=== PATIENT | female | born 1975 | race Caucasian/White ===

== ENCOUNTER 2022-02-15 10:08 | Outpatient (CLI) | payer BC, SELFPAY ==
--- NOTE | 2022-02-15 10:15 | CRLHL7_ITS ---
For Patients: As a result of the Century Cures Act, medical imaging exams and procedure reports are released immediately into your electronic medical record. You may view this report before your referring provider. If you have questions, please contact your health care provider. BILATERAL SCREENING MAMMOGRAM WITH COMPUTER-AIDED DETECTION AND TOMOSYNTHESIS TECHNIQUE: CC and MLO views were obtained. These mammographic images have been obtained using full-field digital technique. These mammographic images were interpreted with the benefit of computer-aided detection. Breast Tomosynthesis was used in this interpretation. COMPARISON FILM: 10/10/20, 04/07/17. FINDINGS: The breasts are heterogeneously dense, which may obscure small masses IMPRESSION: There is no radiographic evidence for malignancy. ASSESSMENT: BI-RADS Category 1: Negative RECOMMENDATION: Routine screening mammogram in 1 year. A lay language report of this examination will be provided to the patient. Drew Aparicio M.D. Diagnostic Radiologist [email or web address] ROYAL/Dictated by: Drew Aparicio MD @ 02/15/2022 12:48:00 PM (Electronically Signed)
== END 2022-02-15 10:09 | disposition home or self-care (01) ==
LOC: MAMMO 10:10
PROVIDERS: PCP Family Medicine; Visit Provider Family Medicine
DX: Z12.31 Encounter for screening mammogram for malignant neoplasm of breast (principal); R92.2 Inconclusive mammogram
CPT/HCPCS: 77063; 77067

== ENCOUNTER 2023-07-15 13:51 | Outpatient (CLI) | payer BC, SELFPAY ==
--- NOTE | 2023-07-15 14:00 | CRLHL7_ITS ---
For Patients: As a result of the Century Cures Act, medical imaging exams and procedure reports are released immediately into your electronic medical record. You may view this report before your referring provider. If you have questions, please contact your health care provider. BILATERAL SCREENING MAMMOGRAM WITH COMPUTER-AIDED DETECTION AND TOMOSYNTHESIS TECHNIQUE: CC and MLO views were obtained. These mammographic images have been obtained using full-field digital technique. These mammographic images were interpreted with the benefit of computer-aided detection. Breast Tomosynthesis was used in this interpretation. COMPARISON FILM: 02/15/22, 10/10/20, 04/07/17. FINDINGS: The breasts are heterogeneously dense, which may obscure small masses IMPRESSION: There is no radiographic evidence for malignancy. ASSESSMENT: BI-RADS Category 1: Negative RECOMMENDATION: Routine screening mammogram in 1 year. A lay language report of this examination will be provided to the patient. Drew Aparicio M.D. Diagnostic Radiologist [email or web address] MILE/alison Transcribed: 5:03 p.[email or web address] rosas/Dictated by: Drew Aparicio MD @ 07/17/2023 12:47:00 PM (Electronically Signed)
== END 2023-07-15 13:52 | disposition home or self-care (01) ==
PROVIDERS: PCP Family Medicine; Visit Provider Family Medicine
DX: Z12.31 Encounter for screening mammogram for malignant neoplasm of breast (principal); R92.2 Inconclusive mammogram
CPT/HCPCS: 77063; 77067

== ENCOUNTER 2024-07-14 10:29 | Outpatient (CLI) | payer BC, SELFPAY | END 2024-07-14 10:30 | disposition home or self-care (01) | PROVIDERS: PCP Family Medicine; Visit Provider Family Medicine | DX: R53.83 Other fatigue (principal); Z13.6 Encounter for screening for cardiovascular disorders; Z13.1 Encounter for screening for diabetes mellitus; Z13.220 Encounter for screening for lipoid disorders | CPT/HCPCS: 80053; 80061; 82607; 84439; 84443 ==

== ENCOUNTER 2024-07-22 08:47 | Outpatient (CLI) | payer BC, SELFPAY ==
--- NOTE | 2024-07-22 10:19 | W.ANESCHARGE ---
Anesthesia Charges Start Date/Time Anesthesia Start Date: 07/22/24 Anesthesia Start Time: 09:39 Stop Date/Time Anesthesia Stop Date: 07/22/24 Anesthesia Stop Time: 10:17 Coding CPT Codes CPT Codes: NARDA LWR INTST NDAL NOS - 29150 ([id number]) P1 - NORMAL HEALTHY PATIENT, QK - MANAGER PARTY 2-4 CNCRNT ANES PROC, QX - SENIOR TECHNICAL WRITER SVC W/ MED DIRECTION
[2024-07-24 11:42] LABS: Carcinoembryonic Antigen 1.1 ng/mL (<=3.8)
== END 2024-07-22 08:48 | disposition home or self-care (01) ==
LOC: OP CLINIC 08:47
PROVIDERS: PCP Family Medicine; Visit Provider Surgery
DX: Z12.11 Encounter for screening for malignant neoplasm of colon (principal); D12.3 Benign neoplasm of transverse colon; D49.0 Neoplasm of unspecified behavior of digestive system; Z83.719 Family history of colon polyps, unspecified
CPT/HCPCS: 00811; 36415; 45380; 45381; 45385; 82378; J2704

== ENCOUNTER 2024-07-22 11:07 | Outpatient (CLI) | payer BC, SELFPAY | END 2024-07-22 11:08 | disposition home or self-care (01) | LOC: CT 11:08 | PROVIDERS: PCP Family Medicine; Visit Provider Surgery | DX: K63.89 Other specified diseases of intestine (principal); K76.9 Liver disease, unspecified; R91.8 Other nonspecific abnormal finding of lung field | CPT/HCPCS: 71260; 74177; Q9967 ==

== ENCOUNTER 2024-08-02 09:58 | Inpatient (IN) | payer BC, SELFPAY ==
[2024-08-02] VITALS (23 sets, daily range): BP systolic 106–133; BP diastolic 61–88; PULSE 78–98; RESP 14–19; TEMP 36.3–37.2; O2SAT 92–97; BMI 20.6
[2024-08-02 10:28] LABS: Ur HCG Qualitative* Negative (Negative)
[2024-08-02] MEDS: SODIUM CHLORIDE 0.9 % (FLUSH) 10 ML SYRINGE IVF (10:30)
[2024-08-02] MEDS: LACTATED RINGERS 1000 ML 1,000 ML 100 ML IV ×2 (10:30→14:07)
--- NOTE | 2024-08-02 11:49 | PM.GSPRC ---
Operative Note Date of procedure: 08/02/24 Pre-op diagnosis: 1. Endoscopically unresectable splenic flexure tubulovillous adenoma. Post-op diagnosis: Same Type of Procedure: 1. Laparoscopic left hemicolectomy. 2. I SPY administration. Indications: 49-year-old female underwent first colonoscopy and was found to have a large polyp / mass at the splenic flexure. Biopsies of this polyp were done and returned as tubulovillous adenoma. A tattoo was placed proximally and distally to this polyp. Since the polyp was occupying about 50% of the colon circumference and had central indentation, laparoscopic left hemicolectomy was recommended. CT chest, abdomen and pelvis were obtained and did not show any concerns for metastatic disease. Patient's CEA was normal. The procedure was discussed in detail. The risks associated procedure including infection, bleeding, injury to intra-abdominal organs, anastomotic leak, and the need for additional procedures were all discussed with the patient, she agreed to proceed. Procedure Description: After discussing the risks and benefits of the procedure, the patient signed informed consent.? The operative site was marked and the patient was brought to the operating room and placed on the operating table in supine position.? Patient was intubated by anesthesia. Patient was then placed in the modified lithotomy position with all pressure points padded. A Hickey catheter was inserted under sterile conditions. The surgical site was then prepped and draped in the usual sterile fashion.? A time-out was then performed. The abdomen was entered in the left upper quadrant using a Visiport technique. The abdominal wall layers were visualized and the abdomen was entered. The abdomen was insufflated with carbon dioxide. Small liver laceration was noted from the entrance site. This was not bleeding. We then placed additional laparoscopic ports under direct visualization. A 5 mm port was placed below the umbilicus, another one slightly to the right of the umbilicus and 12 mm port was placed suprapubically. The patient was positioned with the left side up. The proximal and distal tattoo was identified in the distal transverse colon/splenic flexure. I then proceeded with mobilizing the descending colon and splenic flexure. Omental adhesions were noted at the splenic flexure and those were lysed with the Harmonic scalpel. The descending colon was rotated medially and the white line of Toldt was divided with Harmonic scalpel. This dissection was carried superiorly toward the splenic flexure. Omentum was mobilized off the splenic flexure colon with Harmonic scalpel. Gastrocolic ligament was then divided with Harmonic scalpel as well. The transverse colon was retracted caudad and transverse colon mesentery was mobilized off the retroperitoneum bluntly and with Harmonic scalpel. Pancreas and duodenum were visualized and care was taken not to injure those. During this dissection the colonic wall at the proximal tattoo was injured with Harmonic scalpel. This was clipped with 5 mm clips to avoid contamination. When the splenic flexure was mobile, we turned our attention to the descending colon and sigmoid colon. The lateral attachments of the sigmoid colon to the abdominal wall were mobilized with Harmonic scalpel and Metzenbaum scissors. Left ureter was visualized and care was taken not to injure it. The sigmoid colon was extremely redundant. When the colon was mobile, we then proceeded with dividing the vasculature. The left colic artery and vein was identified at its takeoff. This was circumferentially dissected and divided with vascular load of STACIE stapler. The sigmoidal arteries were preserved in order to preserve the colonic length and perfusion and achieve tension-free transverse to sigmoid colon anastomosis. Colonic mesentery supplying the splenic flexure and the distal transverse colon was then further divided. The left branch of the middle colic artery was identified and mobilized circumferentially with Brielle dissector. This was controlled with clips proximally and distally and divided between the clips. The transverse colon and splenic flexure as well as descending colon were very mobile. We then proceeded with I SPY(ICG injection) detection of colon perfusion. A clear demarcation of the transverse colon and sigmoid colon perfusion was identified and elected as the area of colonic division. These areas were grasped with laparoscopic instruments. We then proceeded with extracorporeal portion of the procedure. The laparoscopic instruments were removed from the abdomen. The abdomen was deflated. A periumbilical vertical skin incision was made with a scalpel. Dermis was divided with cautery. The anterior fascia was divided with cautery. The abdomen was entered and fascial incision was extended superiorly and inferiorly. Small Sam retractor was then placed in the wound. The grasped segments of colon were eviscerated and grabbed with Ruy clamps. The elected areas of colon division were identified and mid transverse colon and proximal sigmoid colon were divided with blue load of STACIE stapler. The left colon was then marked with a single stitch proximally and put on the back table. At the end of the case the specimen was opened on the back table and a large polyp was identified. There was no clear mass seen. Bleeding from the staple line was controlled with 3-0 silk sutures. The sigmoid colon and transverse colon were very mobile and we then proceeded with side to side functional end to end anastomosis. The colonic mesentery was not twisted. A stay stitch was placed at the colonic staple line. The colotomy was then made in both limbs of the colon and [id number] anastomosis was created with a blue load of 100 STACIE stapler. The anastomosis was examined from the inside and no bleeding was seen initially. We then proceeded with closure of common enterotomy. This was done with interrupted Lembert 3-0 silk sutures. During this closure bleeding was noticed inside the staple line and that was controlled with silk and Vicryl suture stick ties. No further bleeding was seen intraluminally. The colon was well perfused. We then finished our closure of common enterotomy with silk sutures. A crotch stitch was placed with silk suture. The anastomosis was patent to palpation and was well perfused. No tension was seen on the anastomosis. The mesenteric defect was large and we elected not to close it. The anastomosis was then pushed into the abdomen. All previously placed towels and dirty instruments were removed. The Ewelina retractor was removed. The surgeon and assistants changed gloves and cautery as well as suction tip. We then proceeded with midline closure. The fascia of the midline incision was then closed with 2 running PDS sutures. The abdomen was insufflated again and anastomosis was examined. The anastomosis appeared to lay easily in the left upper quadrant. Omentum was placed over the anastomosis. No bleeding was identified. The 12 mm port suprapubic port was removed and the fascia of this incision was closed with interrupted 0-0 Vicryl sutures. The liver was examined again and no bleeding was identified. All laparoscopic instruments were removed after allowing carbon dioxide to escape from the abdomen. We then proceeded with incisional closure. The midline incision was reapproximated with interrupted Vicryl sutures. The skin of all incisions was then closed with 4-0 Monocryl stitch. Steri-Strips were placed over the incisions. Midline incision was covered with gauze and tape. All counts were correct at the end of the case. The patient was then woken and transported to the recovery area in stable condition. ? The patient tolerated the procedure well. Findings: Tattoo was identified in the distal transverse/splenic flexure. The specimen was opened on the back table and a large polyp was identified in the specimen. Anesthesia: GETA Surgeon: Bobby Ricci MD Co-Surgeon: Daly Cannon MD Estimated blood loss (mL): 20 Additional Specimen Information: 1. Left colon Condition: stable Disposition: PACU Colon Resection Operation Performed with Curative Intent: Yes Tumor location: Splenic flexure Extent of colon and vascular resection: Splenic flexure resection-middle and ascending left colic
[2024-08-02] MEDS: ERTAPENEM 1 GM inj IVPB (12:10)
--- NOTE | 2024-08-02 12:31 | P.NB_ITS ---
Nerve Block Nerve Block Time Seen by Provider: 12:06 Date Seen: 08/02/24 Type of block requested by surgeon for post-operative analgesia: TAP Side: bilateral Time out performed: Yes Verification of patient name: Yes Verification of date of : Yes Site marking: site marked Name of person performing procedure: Sixto Continuous monitoring Was continuous monitoring of O2 sat, B/P, cardiac exercise specialist, recorded every 15 minutes?: Yes Procedure Checklist: sterile prep, needles and gloves Ultrasound guided. Images saved: Yes Medications given in 5ml increments after negative aspiration: Marcaine %: 0.25 mL: 30 Needle gauge: 20 and Exparel mL: 10 Patient tolerated procedure well: Yes Additional comments: Needle noted between internal oblique and transversus abdominus. Local spread visualized Block Charges Block Charge (with Pro Fee): TAP Bilateral Use of Ultrasound Machine for Block: Yes- US Guidance/pain block
--- NOTE | 2024-08-02 12:31 | P.ANES_ITS ---
Anesthesia Charges Start Date/Time Anesthesia Start Date: 08/02/24 Anesthesia Start Time: 12:00 Stop Date/Time Anesthesia Stop Date: 08/02/24 Anesthesia Stop Time: 16:26 Coding CPT Codes CPT Codes: ANESTH SURG LOWER ABDOMEN - 85926 ([id number]) P2 - PATIENT W/MILD SYST DISEASE, QK - LEATHER CRAFTER 2-4 CNCRNT ANES PROC, QX - TRACTOR OPERATOR HELPER SVC W/ MD MED DIRECTION
--- NOTE | 2024-08-02 12:31 | W.ANESCHARGE ---
Anesthesia Charges Start Date/Time Anesthesia Start Date: 08/02/24 Anesthesia Start Time: 12:00 Stop Date/Time Anesthesia Stop Date: 08/02/24 Anesthesia Stop Time: 16:26 Coding CPT Codes CPT Codes: ANESTH SURG LOWER ABDOMEN - 34448 ([id number]) P2 - PATIENT W/MILD SYST DISEASE, QK - CLOTH BLEACHING RANGE BACK TENDER 2-4 CNCRNT ANES PROC, QX - PHOTOGRAPHIC ENGINEER SVC W/ MD MED DIRECTION
--- NOTE | 2024-08-02 13:45 | SUR.OPER ---
Updated patients family of progress at 1346.
--- NOTE | 2024-08-02 15:58 | SUR.OPER ---
family updated via phone call at [phone]
--- NOTE | 2024-08-02 16:18 | PM.GSPRC ---
Operative Note Date of procedure: 08/02/24 Pre-op diagnosis: Endoscopically-unresectable tubulovillous adenoma of the splenic flexure Post-op diagnosis: Same Type of Procedure: Laparoscopic assisted left hemicolectomy Indications: The patient is a 49-year-old female who was found to have a large polyp at the splenic flexure on screening colonoscopy. Biopsy showed this to be tubulovillous adenoma, the polyp's large size made it unresectable endoscopically and colectomy was recommended. The patient underwent preoperative staging in the event that cancer would be found within the polyp on final pathology. This workup was negative. Please see Dr. Ricci's documentation for preoperative decision making and discussion. Procedure Description: I arrived to the operating room with Dr. Ricci already having started colonic mobilization. The proximal and distal tattoos were visible in the distal transverse colon. The lateral left colon and splenic flexure had been mobilized. I provided retraction on the omentum while Dr. Ricci used the Harmonic scalpel to incise the gastrocolic ligament and enter the lesser sac, mobilizing the transverse colon toward the flexure. The transverse colon mesentery was gently dissected down from the upper structures in the retroperitoneum and filmy adhesions were divided by Dr. Ricci with the Harmonic scalpel. Once she reached the area of prior mobilization of the splenic flexure, we then turned our attention to the lateral colonic attachments. Dr. Ricci had previously freed the colon laterally, however toward the pelvic brim, there were still some attachments. I reflected the sigmoid colon medially while Dr. Ricci carefully divided the lateral pelvic attachments using Harmonic scalpel. The ureter was visible in the retroperitoneum during this time and care was taken to avoid it. Once this was done we turned our attention to dividing the mesentery. I reflected the colon anteriorly toward the abdominal wall. The patient is thin mesentery made the mesenteric vessels easily visible. The patient had a large amount of redundant sigmoid colon. The area of planned resection included a significant length of colon, and therefore, it was felt that appropriate resection could be achieved by dividing the left colic vessels, leaving the sigmoid vessels intact. I continue to provide exposure while Dr. Ricci dissected out the pedicle of the left colic vessels. She dissected completely the mesentery, skeletonizing the vessel prior to division. Two vessels proximal to the sigmoid branches were divided separately using vascular load Endo-STACIE stapler. This was done at the takeoff from the inferior mesenteric artery. The staple lines were examined. There was no bleeding. The ureter was noted to be posterior and deep to the area of division. I then continued to provide retraction of the colon anteriorly while Dr. Ricci divided the mesentery, staying close to the base of the mesentery, with the Harmonic scalpel. Once we reached the middle colic artery, with care to preserve perfusion to the proximal aspect of the transverse colon, Dr. Ricci dissected out the left branch near the takeoff from the middle colic and ligated this with 2 clips. She then divided the vessel. At this point to ensure perfusion to the proximal distal ends of the colon, ICG was administered. This showed excellent perfusion up to the point of mesenteric division on the transverse colon. Similarly there was excellent perfusion of the sigmoid colon distally. Both ends of the colon came together easily intracorporeally. We then turned our attention to creating the anastomosis. Dr. Ricci then created a small periumbilical incision. An Sam wound retractor was then placed in the wound. Through this the specimen was passed. We identified the area of planned division proximal to the tattoo on the transverse colon which had been confirmed to be perfused and grasped while using ICG. Similarly we identified a healthy area of bowel on the sigmoid. Dr. Ricci divided a small amount of mesentery on the sigmoid in order to facilitate division. Once this was done, Dr. Ricci divided the sigmoid colon and transverse colon with a blue load STACIE stapler. A small bleeding vessel of the proximal staple line was oversewn with silk. The ends were then brought together and I again provided retraction exposure will Dr. Ricci created colotomy in each end of the colon. Through this she placed a blue load STACIE stapler and created a 70 mm anastomosis. There was a small bleeding vessel on the staple line internally which was oversewn by Dr. Ricci resulting in excellent hemostasis. Dr. Ricci then closed the common colotomy with interrupted imbricating suture. A crotch stitch was placed and the anastomosis was passed down into the abdomen. At this point gloves and instruments were changed for a clean closure. I assisted well Dr. Ricci closed the fascia with a running 0 Maxon suture. The abdomen was then insufflated and the anastomosis laid nicely in the left upper abdomen. There Was no bleeding noted. At this time, Dr. Ricci completed the remainder of the case I did open the specimen on the back table to ensure the polyp was contained within. Findings: Large polypoid lesion noted in distal transverse colon Anesthesia: GETA Surgeon: Daly Cannon MD Specimen: Other Additional Specimen Information: Left colon and splenic flexure, stitch proximal Condition: stable Disposition: PACU Colon Resection Operation Performed with Curative Intent: Yes Tumor location: Splenic flexure Extent of colon and vascular resection: Splenic flexure resection-middle and ascending left colic
[2024-08-02] MEDS: fentaNYL 100 MCG/2 ML inj 50 MCG IVP ×2 (16:25→16:30)
--- NOTE | 2024-08-02 16:40 | P.ANES_ITS ---
Anesthesia Charges Start Date/Time Anesthesia Start Date: 08/02/24 Anesthesia Start Time: 12:00 Stop Date/Time Anesthesia Stop Date: 08/02/24 Anesthesia Stop Time: 16:26 Coding CPT Codes CPT Codes: ANESTH SURG LOWER ABDOMEN - 03862 ([id number]) P2 - PATIENT W/MILD SYST DISEASE, QK - TOGGLE PRESS FOLDER AND FEEDER 2-4 CNCRNT ANES PROC, QX - KETTLE TENDER SVC W/ MD MED DIRECTION
--- NOTE | 2024-08-02 16:40 | W.ANESCHARGE ---
Anesthesia Charges Start Date/Time Anesthesia Start Date: 08/02/24 Anesthesia Start Time: 12:00 Stop Date/Time Anesthesia Stop Date: 08/02/24 Anesthesia Stop Time: 16:26 Coding CPT Codes CPT Codes: ANESTH SURG LOWER ABDOMEN - 47577 ([id number]) P2 - PATIENT W/MILD SYST DISEASE, QK - EDGE BONDER 2-4 CNCRNT ANES PROC, QX - ADMISSIONS DIRECTOR SVC W/ MD MED DIRECTION
[2024-08-02] MEDS: HYDROmorphone 0.5 mg/0.5 ml inj IVP ×4 (16:42→23:27)
[2024-08-02] MEDS: LACTATED RINGERS 1000 ML 1,000 ML 75 ML IV (18:01)
[2024-08-03] MEDS: HYDROmorphone 0.5 mg/0.5 ml inj IVP ×4 (02:37→14:50)
[2024-08-03 02:41] VITALS: BP 126/76; PULSE 80; RESP 18; TEMP 36.7; O2SAT 94
--- NOTE | 2024-08-03 06:13 | PC.NURSE ---
Pt alert and oriented. Pt had complaints of pain ranging 4-7; see EMAR for intervention. Pt?s VS WNL. Pt up with SBA and walked in hallways x 2 overnight with staff. Pt?s lap sites intact.?
[2024-08-03] MEDS: LACTATED RINGERS 1000 ML 1,000 ML 75 ML IV ×2 (06:22→20:35)
--- NOTE | 2024-08-03 07:09 | PM.GSPN ---
Subjective Subjective Date Seen: 08/03/24 Interval history: Patient complains of abdominal pain that she feels like ?gas pain?. It is relieved with IV pain medication. Patient walked twice in the middle of the night. Urine output was 400 mL throughout the whole night. Denies nausea or vomiting. Exam Narrative: Exam Narrative: Abdomen is soft, not distended, minimal discomfort to percussion throughout the abdomen, no tenderness to palpation on the right side of the abdomen, mild tenderness to palpation in the left side of the abdomen. Steri-Strips are clean and dry, midline incision is covered with clean dressing. Const: Vital Signs, click to edit/add: Vital Signs - 24 hr 08/02/24 10:33 08/02/24 14:50 08/02/24 16:24 Temperature 98.2 F 99.0 F Pulse Rate 85 88 84 Pulse Rate [Right Pulse Oximeter] Respiratory Rate 16 16 14 Blood Pressure 115/78 125/75 128/83 Blood Pressure [Ri ght Arm] Pulse Oximetry 96 93 96 Oxygen Delivery Me thod Room Air Room Air 08/02/24 16:30 08/02/24 16:35 08/02/24 16:40 Temperature Pulse Rate 83 81 80 Pulse Rate [Right Pulse Oximeter] Respiratory Rate 16 18 19 Blood Pressure 126/88 133/83 129/83 Blood Pressure [Ri ght Arm] Pulse Oximetry 94 92 93 Oxygen Delivery Me thod 08/02/24 16:45 08/02/24 16:50 08/02/24 16:55 Temperature Pulse Rate 82 88 85 Pulse Rate [Right Pulse Oximeter] Respiratory Rate 18 16 16 Blood Pressure 131/80 125/75 123/86 Blood Pressure [Ri ght Arm] Pulse Oximetry 92 94 93 Oxygen Delivery Me thod 08/02/24 17:00 08/02/24 17:05 08/02/24 17:15 Temperature 98.7 F 98.1 F Pulse Rate 85 83 92 Pulse Rate [Right Pulse Oximeter] Respiratory Rate 18 16 16 Blood Pressure 126/84 121/80 125/82 Blood Pressure [Ri ght Arm] Pulse Oximetry 94 92 92 Oxygen Delivery Me thod Room Air 08/02/24 17:30 08/02/24 17:45 08/02/24 18:00 Temperature 98.1 F 97.6 F 97.6 F Pulse Rate 94 83 85 Pulse Rate [Right Pulse Oximeter] Respiratory Rate 16 16 16 Blood Pressure 129/79 128/71 128/75 Blood Pressure [Ri ght Arm] Pulse Oximetry 95 94 93 Oxygen Delivery Me thod Room Air Room Air Room Air 08/02/24 18:15 08/02/24 18:45 08/02/24 19:15 Temperature 97.3 F L 97.6 F 97.6 F Pulse Rate 80 98 86 Pulse Rate [Right Pulse Oximeter] Respiratory Rate 16 16 16 Blood Pressure 118/86 111/75 106/61 Blood Pressure [Ri ght Arm] Pulse Oximetry 94 95 97 Oxygen Delivery Me thod Room Air Room Air Room Air 08/02/24 20:00 08/02/24 21:10 08/02/24 22:00 Temperature 98.0 F Pulse Rate 81 82 78 Pulse Rate [Right Pulse Oximeter] Respiratory Rate 16 16 14 Blood Pressure 122/81 112/66 123/75 Blood Pressure [Ri ght Arm] Pulse Oximetry 92 94 94 Oxygen Delivery Me thod Room Air Room Air Room Air 08/02/24 23:05 08/02/24 23:40 08/03/24 02:41 Temperature 97.8 F 98.0 F Pulse Rate 80 Pulse Rate [Right Pulse Oximeter] 80 Respiratory Rate 16 16 18 Blood Pressure 119/83 Blood Pressure [Ri ght Arm] 126/76 Pulse Oximetry 94 94 94 Oxygen Delivery Me thod Room Air Room Air Room Air Progress Note:A&P Assessment and plan (1) S/P left hemicolectomy: Status: Acute Plan 49-year-old female s/p laparoscopic left hemicolectomy POD 1. I discussed with the patient that we can take her Hickey catheter out today. She should ambulate as much as possible. We will keep her on clear liquid diet. Will also check labs today.
--- NOTE | 2024-08-03 07:09 | PC.NURSE ---
Hickey catheter removed at 0705am; catheter intact.
[2024-08-03 08:39] VITALS: BP 124/79; PULSE 71; RESP 14; TEMP 37.3; O2SAT 96
[2024-08-03] MEDS: HYDROCODONE-ACETAMIN 5-325 MG 1 TAB PO ×3 (08:43→20:35)
[2024-08-03 09:52] LABS: C Reactive Protein* 3.6 mg/dL (0.5-1.0)
[2024-08-03] MEDS: CALCIUM CARBONATE 500 MG CHEW PO (10:06)
[2024-08-03 12:06] VITALS: BP 110/74; PULSE 76; RESP 16; TEMP 37.7; O2SAT 96
[2024-08-03] MEDS: FLUOXETINE HCL 20 MG CAPSULE 40 MG PO (13:18)
[2024-08-03] MEDS: buPROPion HCL SR 150 MG TAB PO ×2 (13:18→20:35)
[2024-08-03] MEDS: KETOROLAC 30 MG/ML inj IVP ×2 (14:47→20:36)
[2024-08-03 14:51] LABS: Basophils Percent Auto 0.3 % (0.0-3.0); Hematocrit 35.9 % (33.0-51.0); Hemoglobin* 11.4 gm/dL (12.0-16.0); Immature Granulocytes Pct Auto 0.8 %; Lymphocytes Percent Auto 10.3 % (20-44); Mean Corpuscular HGB Conc 32 gm/dL (32-36); Mean Corpuscular Hemoglobin 30 pg (26-34); Mean Corpuscular Volume 96 fL (80-100); Monocytes Percent Auto 9.3 % (0.0-11.0); Neutrophils Percent Auto 79.3 % (42.0-72.0); Platelet Count* 271 K/uL (140-440); RDW Coefficient of Variation % 12.3 % (11.5-15.5); Red Blood Count 3.76 m/uL (4.00-5.20); White Blood Count* 14.11 K/uL (4.50-11.00)
[2024-08-03 14:52] VITALS: PULSE 75; RESP 16; O2SAT 95
[2024-08-03 14:54] VITALS: BP 117/77; PULSE 75; RESP 16; TEMP 37.4; O2SAT 95
[2024-08-03 14:54] LABS: Slide Review Reflex No
--- NOTE | 2024-08-03 17:41 | PC.NURSE ---
End of Shift: Patient pleasant and cooperative. Patient vitally stable, lungs clear, BS WNL, IV running LR at 75. Patient has rated abdominal pain at most 7/10 but was also in tears once today due to pain. Two tabs of norco has been given twice, scheduled toradol, and 0.5 mg of diluaded x2 given today. Patient abdominal lap sites x3 and dressing C/D/I. Patient urinating and tolerating clear liquid diet, patient did relieve residual gastric contents x2 BM. Patient has walked the ling and uses heat pad on abdomen.
[2024-08-03 19:25] VITALS: BP 114/72; PULSE 73; RESP 16; TEMP 36.8; O2SAT 96
[2024-08-04] VITALS (8 sets, daily range): BP systolic 106–115; BP diastolic 69–75; PULSE 64–73; RESP 16–20; TEMP 36.8–37.1; O2SAT 97–99
[2024-08-04] MEDS: KETOROLAC 30 MG/ML inj IVP ×3 (02:17→16:17)
--- NOTE | 2024-08-04 06:06 | PC.NURSE ---
Pt alert and oriented. Pt had complaints of pain; see EMAR for intervention. Pt up independently. Pt's dressings intact.
[2024-08-04 06:34] LABS: Basophils Absolute Auto 0.04 K/uL (0.00-0.30); Basophils Percent Auto 0.5 % (0.0-3.0); Chloride* 104 mmol/L (96-114); Eosinophils Absolute Auto 0.11 K/uL (0.00-0.50); Eosinophils Percent Auto 1.4 % (0.0-7.0); Hematocrit 31.8 % (33.0-51.0); Hemoglobin* 10.2 gm/dL (12.0-16.0); Lymphocytes Absolute Auto 2.02 K/uL (0.90-2.90); Lymphocytes Percent Auto 25.9 % (20-44); Mean Corpuscular HGB Conc 32 gm/dL (32-36); Mean Corpuscular Hemoglobin 30 pg (26-34); Mean Corpuscular Volume 95 fL (80-100); Monocytes Percent Auto 7.2 % (0.0-11.0); Neutrophils Absolute Auto 5.06 K/uL (1.7-7.0); Platelet Count* 228 K/uL (140-440); RDW Coefficient of Variation % 12.2 % (11.5-15.5); Red Blood Count 3.35 m/uL (4.00-5.20); Sodium* 136 mmol/L (135-149); White Blood Count* 7.79 K/uL (4.50-11.00)
[2024-08-04 06:36] LABS: Blood Urea Nitrogen* 8 mg/dL (5-24); Creatinine* 0.6 mg/dL (0.5-1.5); Est. Creatinine Clearance* 106.13; Estimated Glomerular Filt Rate 111 ml/min
[2024-08-04 06:37] LABS: Anion Gap 5 mEq/L (7-15); Carbon Dioxide* 27 mmol/L (20-32); Glucose* 81 mg/dL (60-115)
[2024-08-04 06:38] LABS: Calcium* 8.1 mg/dL (8.4-10.6)
[2024-08-04 06:40] LABS: C Reactive Protein* 2.8 mg/dL (0.5-1.0); Slide Review Reflex No
[2024-08-04] MEDS: HYDROCODONE-ACETAMIN 5-325 MG 1 TAB PO ×3 (07:27→18:43)
[2024-08-04] MEDS: FLUOXETINE 40 MG CAPSULE PO (08:32)
[2024-08-04] MEDS: buPROPion HCL SR 150 MG TAB PO ×2 (08:33→22:15)
[2024-08-04] MEDS: LACTATED RINGERS 1000 ML 1,000 ML 75 ML IV (10:19)
--- NOTE | 2024-08-04 13:30 | PM.GSPN ---
Subjective Subjective Date Seen: 08/04/24 Interval history: Patient's abdominal pain has improved since yesterday. It is still present but less crampy. Toradol helped with pain. She had several liquid bowel movements. She passed gas with bowel movements mostly. She tolerated clear liquid diet today with no nausea or vomiting. She has been ambulating. Exam Narrative: Exam Narrative: Abdomen is soft, not distended, tender to palpation in the left mid abdomen but no where else. Laparoscopic incisions and midline incision are covered with dry steries. Const: Vital Signs, click to edit/add: Vital Signs - 24 hr 08/03/24 14:52 08/03/24 14:52 08/03/24 14:54 Temperature 99.3 F Pulse Rate [Right Pulse Oximeter] 75 75 Respiratory Rate 16 16 16 Blood Pressure [Ri ght Arm] 117/77 Pulse Oximetry 95 95 Oxygen Delivery Me thod Room Air Room Air 08/03/24 19:25 08/04/24 02:20 08/04/24 02:27 Temperature 98.3 F 98.3 F Pulse Rate [Right Pulse Oximeter] 73 73 Respiratory Rate 16 16 16 Blood Pressure [Ri ght Arm] 114/72 115/72 Pulse Oximetry 96 99 99 Oxygen Delivery Me thod Room Air Room Air Room Air 08/04/24 07:31 08/04/24 07:31 08/04/24 07:31 Temperature 98.6 F Pulse Rate [Right Pulse Oximeter] 70 70 Respiratory Rate 20 20 20 Blood Pressure [Ri ght Arm] 109/69 Pulse Oximetry 97 97 Oxygen Delivery Me thod Room Air Room Air 08/04/24 10:43 Temperature 98.7 F Pulse Rate [Right Pulse Oximeter] 73 Respiratory Rate 18 Blood Pressure [Ri ght Arm] 106/69 Pulse Oximetry 97 Oxygen Delivery Me thod Room Air Progress Note:A&P Assessment and plan (1) S/P left hemicolectomy: Status: Acute Plan 49-year-old female s/p laparoscopic left hemicolectomy POD 2. Patient's WBC decreased to normal today. Her CRP decreased to 2 from 3 yesterday. Will recheck CRP tomorrow. She is clinically improving. I discussed with the patient that she can advance diet to full liquid diet. She can have toast and crackers with full liquid diet if she wants to. Will work on her pain control with mostly [place] and Toradol for breakthrough pain so she can be ahead of her pain.
[2024-08-04] MEDS: CALCIUM CARBONATE 500 MG CHEW PO (14:54)
--- NOTE | 2024-08-04 17:57 | PC.NURSE ---
End of Shift: Patient pleasant and cooperative. Patient vitally stable, lungs clear, BS WNL, IV SL and intact. Patient rates pain at most 6/10, [place] two tabs given x3 and toradol given x2. Abdominal lap sites C/D/I, Patient independent and walking the halls. Patient tolerating full liquids. Patient urinating and continues to have BMs.
--- NOTE | 2024-08-04 23:00 | PC.NURSE ---
Nursing Care Hours: [id number] Pt resting comfortably in bed this shift. Pain rated 4/10, tolerable to pt. VSS. BS hyperactive
[2024-08-05] VITALS (11 sets, daily range): BP systolic 114–138; BP diastolic 65–91; PULSE 52–84; RESP 16–18; TEMP 36.6–37.1; O2SAT 96–97
[2024-08-05] MEDS: HYDROCODONE-ACETAMIN 5-325 MG 1 TAB PO ×4 (00:21→19:51)
[2024-08-05] MEDS: KETOROLAC 30 MG/ML inj IVP (04:36)
--- NOTE | 2024-08-05 06:31 | PC.NURSE ---
End of shift [id number]: A&O pleasant and cooperative. Afebrile. VSS. Rating pain 4-5/10. See eMAR for interventions. Lap sites c/d/i. BS active. Pt reports passing gas. No bowel movements overnight. Tolerating full liquid diet. Up at tasneem in room.
--- NOTE | 2024-08-05 07:40 | P.DS_ITS ---
DS: Providers Provider Date Seen: 08/06/24 Date of admission: 08/02/24 09:58 Primary care physician: Tonya Bhagat MD Admitting Clinician: Bobby Ricci MD Attending Physician on discharge: Bobby Ricci MD DS: Summary Hospital Course Hospital Course: 49-year-old female was admitted to the hospital after she underwent laparoscopic left hemicolectomy for splenic flexure endoscopically unresectable polyp. Patient had crampy abdominal pain postoperatively. Her pain was finally controlled with p.o. pain medication and Toradol. She was passing gas and had multiple liquid bowel movements. Patient's diet was advanced to regular diet. Prior to discharge patient had dark bloody liquid bowel movements. Her hemoglobin remained stable at 10. She received 1 g of tranexamic acid. She did not have any bowel movements overnight. Patient was determined to be safe to be discharged. Time Spent with Patient Time attestation: Total time spent providing and/or coordinating discharge services: Exam Narrative: Exam Narrative: Abdomen is soft, not distended, minimally tender to palpation on the left side of the abdomen, laparoscopic incisions and midline incision are covered with dry Steri-Strips. There is some yellow resolving brian-incisional ecchymosis surrounding the midline incision. There is no erythema. Const: Vital Signs, click to edit/add: Vital Signs - 24 hr 08/04/24 10:43 08/04/24 14:49 08/04/24 14:56 Temperature 98.7 F 98.6 F Pulse Rate [Right Pulse Oximeter] 73 64 64 Respiratory Rate 18 16 16 Blood Pressure [Ri ght Arm] 106/69 108/75 Pulse Oximetry 97 97 Oxygen Delivery Me thod Room Air Room Air 08/04/24 14:56 08/04/24 19:00 08/04/24 20:00 Temperature 98.3 F Pulse Rate [Right Pulse Oximeter] 69 69 Respiratory Rate 16 18 18 Blood Pressure [Ri ght Arm] 115/75 Pulse Oximetry 97 98 Oxygen Delivery Me thod Room Air Room Air 08/04/24 20:00 08/05/24 00:16 08/05/24 00:26 Temperature 97.8 F Pulse Rate [Right Pulse Oximeter] 69 Respiratory Rate 18 16 16 Blood Pressure [Ri ght Arm] 121/82 Pulse Oximetry 98 97 97 Oxygen Delivery Me thod Room Air Room Air Room Air 08/05/24 03:07 08/05/24 04:38 Temperature 98.1 F Pulse Rate [Right Pulse Oximeter] 52 L Respiratory Rate 16 16 Blood Pressure [Ri ght Arm] 122/82 Pulse Oximetry 97 Oxygen Delivery Me thod Room Air DS: Data Data Completed and Pending Labs on day of discharge: Labs from last 24 hours 08/05/24 06:28 C-Reactive Protein 2.0 H Discharge Plan Discharge Disposition: Home, Self-Care Date of Admission: 08/02/24 09:58 Attending Provider on Discharge: Bobby Ricci Primary Care Provider: Tonya Bhagat Condition: Improved Anticipated Discharge Date/Time: 08/05/24 16:41 Discharge Medications: New hydrocodone-acetaminophen 5-325 mg tablet 1 tab PO Q6H PRN (Reason: pain) Qty: 25 0RF Continued fluoxetine 40 mg capsule 80 mg PO DAILY Rx Instructions: administer in the morning and at noon/midday Complete Balance Menopause Rlf 175-62-1 mg (night) capsule, sequential PO bupropion HCl 150 mg tablet sustained-release 12 hr 150 mg PO BID Discontinued neomycin 500 mg tablet 1 g PO ONCE Qty: 6 0RF Rx Instructions: Take 1 gram (2 tabs) at 3 pm, 5 pm, and 7 pm one day prior to surgery erythromycin [Michael-Tab] 500 mg tablet,delayed release (DR/EC) 500 mg PO ONCE Qty: 6 0RF Rx Instructions: Take 1 gram (2 tabs) at 3 pm, 5 pm, and 7 pm one day prior to surgery Discharge Orders: Discharge Order (Routine); Ordered 08/06/24 Ordered By: Bobby Ricci Patient Education: Hydrocodone/Acetaminophen (By mouth), Laparoscopic Bowel Resection (DC) Activity Level: No strenuous activity Activity Detail: No swimming for 2 weeks. Okay to take a shower. Discharge Diet: Regular Follow Up Appointments: Bobby Ricci MD [Staff Physician] - 08/18/24 9:00 am ([facility] for [facility]) [facility]
[2024-08-05] MEDS: FLUOXETINE 40 MG CAPSULE PO (08:04)
[2024-08-05] MEDS: buPROPion HCL SR 150 MG TAB PO ×2 (08:05→19:52)
[2024-08-05] MEDS: ACETAMINOPHEN 325 MG TABLET 650 MG PO (09:16)
[2024-08-05] MEDS: CALCIUM CARBONATE 500 MG CHEW PO ×3 (11:02→22:31)
--- NOTE | 2024-08-05 14:05 | PM.GSPN ---
Subjective Subjective Date Seen: 08/05/24 Interval history: Patient's abdominal pain is improving. She was passing gas. She tolerated full liquid diet. Ambulated. She had 2 bloody bowel movements today. Exam Narrative: Exam Narrative: Abdomen is soft, not distended, Steri-Strips are over the incisions with no surrounding erythema. There is brian-incisional ecchymosis adjacent to the midline incision. Const: Vital Signs, click to edit/add: Vital Signs - 24 hr 08/04/24 14:49 08/04/24 14:56 08/04/24 14:56 Temperature 98.6 F Pulse Rate [Right Pulse Oximeter] 64 64 Respiratory Rate 16 16 16 Blood Pressure [Ri ght Arm] 108/75 Pulse Oximetry 97 97 Oxygen Delivery Me thod Room Air Room Air 08/04/24 19:00 08/04/24 20:00 08/04/24 20:00 Temperature 98.3 F Pulse Rate [Right Pulse Oximeter] 69 69 Respiratory Rate 18 18 18 Blood Pressure [Ri ght Arm] 115/75 Pulse Oximetry 98 98 Oxygen Delivery Me thod Room Air Room Air 08/05/24 00:16 08/05/24 00:26 08/05/24 03:07 Temperature 97.8 F Pulse Rate [Right Pulse Oximeter] 69 Respiratory Rate 16 16 16 Blood Pressure [Ri ght Arm] 121/82 Pulse Oximetry 97 97 Oxygen Delivery Me thod Room Air Room Air 08/05/24 04:38 08/05/24 07:00 08/05/24 07:00 Temperature 98.1 F Pulse Rate [Right Pulse Oximeter] 52 L 68 Respiratory Rate 16 16 18 Blood Pressure [Ri ght Arm] 122/82 Pulse Oximetry 97 97 Oxygen Delivery Me thod Room Air Room Air 08/05/24 07:00 08/05/24 11:00 08/05/24 13:51 Temperature 98.1 F Pulse Rate [Right Pulse Oximeter] 62 60 68 Respiratory Rate 18 16 Blood Pressure [Ri ght Arm] 116/75 120/78 138/65 Pulse Oximetry 97 96 97 Oxygen Delivery Me thod Room Air Room Air Room Air Progress Note:A&P Assessment and plan (1) S/P left hemicolectomy: Status: Inactive Assessment and Plan: 49-year-old female s/p laparoscopic left hemicolectomy POD 3. Patient's diet was advanced to regular diet. We will continue controlling her pain with p.o. medications.
[2024-08-05 15:19] LABS: Hemoglobin* 10.3 gm/dL (12.0-16.0)
[2024-08-05] MEDS: TRANEXAMIC ACID 1,000 MG in 0.9 % SODIUM CHLORIDE 100 ml 100 ML 440 MG IVPB (15:30)
--- NOTE | 2024-08-05 18:54 | PC.NURSE ---
Nursing Care Hours: [id number] Pt this shift calm and cooperative, alert and oriented. Independent in the room. Advanced to regular diet. Denies nausea but pain in abdomen persistent around 4-5/10 and states feeling bubbly. BS hyperactive all recio. BM post meals. Pt reported morning BM as red and bloody but had flushed it. Reported to Dr Velázquez the surgeon. Medical Librarian put clean hat in toilet and told pt to call nurse with next BM. Post lunch, pt had 300ml dark red thick liquid in hat. VSS, asymptomatic. Reported again to surgeon and new orders completed. Hgb remains stable. Two more smaller BM of dark red color and liquid and some coffee ground consistency at end of shift.
[2024-08-05] MEDS: HYDROmorphone 0.5 mg/0.5 ml inj IVP (23:06)
[2024-08-06] MEDS: CALCIUM CARBONATE 500 MG CHEW PO ×2 (02:22→08:32)
[2024-08-06] MEDS: HYDROmorphone 0.5 mg/0.5 ml inj IVP (02:22)
[2024-08-06] MEDS: HYDROCODONE-ACETAMIN 5-325 MG 1 TAB PO ×2 (02:35→08:32)
[2024-08-06 03:00] VITALS: BP 116/71; PULSE 67; RESP 18; TEMP 36.5; O2SAT 98
--- NOTE | 2024-08-06 05:52 | PC.NURSE ---
End of shift report [id number]: Pleasant and cooperative with cares. Lap sites and midline incision clean, dry and intact. No signs of infection, there is bruising brian opsite. Lower abdomen distention, patient states that it has been the same since surgery. Bowel sounds active. No stools this shift. Patient reporting burning sensation in her stomach that was helped with PRN tums and prn pain medication as well as applying aqua-k pad to abdomen. Tolerating food and fluids without nausea or vomiting. Patient passing flatus. Independent with transfers and ambulation.
[2024-08-06 07:00] VITALS: BP 110/75; PULSE 72; RESP 20; TEMP 36.9; O2SAT 95
[2024-08-06 08:26] LABS: Hemoglobin* 10.5 gm/dL (12.0-16.0)
[2024-08-06] MEDS: FLUOXETINE 40 MG CAPSULE PO (08:31)
[2024-08-06] MEDS: buPROPion HCL SR 150 MG TAB PO (08:32)
== END 2024-08-06 12:20 | disposition home or self-care (01) | DRG 221 ==
PROVIDERS: Admitting Provider Surgery; PCP Family Medicine; Visit Provider Surgery
PROC: 0DTN0ZZ Resection of Sigmoid Colon, Open Approach (ICD-10-PCS; CPT 44204; principal; 2024-08-02 11:00)
DX: D12.3 Benign neoplasm of transverse colon (principal); G89.18 Other acute postprocedural pain; K91.71 Accidental puncture and laceration of a digestive system organ or structure during a digestive system procedure
CPT/HCPCS: 00840; 36415; 64488; 76942; 80048; 81025; 85018; 85025; 86140; 88305; 88309; A4314; A9270; J0330; J0665; J0666; J1100; J1171; J1335; J1885; J2371; J2405; J2704; J3010; J3475; J3490; J7120; S0106

== ENCOUNTER 2024-08-09 14:56 | Outpatient (CLI) | payer BC, SELFPAY ==
--- NOTE | 2024-08-09 15:00 | CRLHL7_ITS ---
For Patients: As a result of the Century Cures Act, medical imaging exams and procedure reports are released immediately into your electronic medical record. You may view this report before your referring provider. If you have questions, please contact your health care provider. BILATERAL SCREENING MAMMOGRAM WITH COMPUTER-AIDED DETECTION AND TOMOSYNTHESIS TECHNIQUE: CC and MLO views were obtained. These mammographic images have been obtained using full-field digital technique. These mammographic images were interpreted with the benefit of computer-aided detection. Breast Tomosynthesis was used in this interpretation. COMPARISON FILM: 07/15/23, 02/15/22, 10/10/20. FINDINGS: The breasts are heterogeneously dense, which may obscure small masses IMPRESSION: There is no radiographic evidence for malignancy. ASSESSMENT: BI-RADS Category 1: Negative RECOMMENDATION: Routine screening mammogram in 1 year. A lay language report of this examination will be provided to the patient. Drew Aparicio M.D. Diagnostic Radiologist [email or web address] Transcribed: 4:23 [email or web address] rosas/Dictated by: Drew Aparicio MD @ 08/10/2024 8:50:00 AM (Electronically Signed)
== END 2024-08-09 14:57 | disposition home or self-care (01) ==
LOC: MAMMO 14:56
PROVIDERS: PCP Family Medicine; Visit Provider Family Medicine
DX: Z12.31 Encounter for screening mammogram for malignant neoplasm of breast (principal); R92.333 Mammographic heterogeneous density, bilateral breasts
CPT/HCPCS: 77063; 77067